=== PATIENT | female | born 1950 | race Caucasian/White ===

== ENCOUNTER 2018-06-08 17:31 | Inpatient (IN) | payer MEDICARE, MEDICAID ==
[~2018-06-08] VITALS: Ht 160 cm; Wt 72.6 kg
[~2018-06-08 17:31] MED LIST: BIMA5DRO OU; DIGO125T87 PO; FERR325C PO; FURO20 PO; QUET100T PO; QUET200XR PO; SIMV-260 PO; SYSTANE; [UNRECOGNIZED DRUG - OTHER] PO; [UNRECOGNIZED DRUG - OTHER] PO
[2018-06-08] MEDS ORDERED: LEVO25TA9 PO (18:19)
[2018-06-08] MEDS ORDERED: ALPR0.5T8 PO (18:19)
[2018-06-08] MEDS ORDERED: FLUO-191 PO (18:19)
[2018-06-08] MEDS ORDERED: RANI150T7 PO (18:19)
[2018-06-08] MEDS ORDERED: ATOR20TA86 PO (18:19)
[2018-06-08] MEDS ORDERED: RISP.5 PO (18:19)
[2018-06-08 18:41] LABS: BASOPHILS % (AUTO) 0.4 % (0.0-2.0); EOSINOPHILS % (AUTO) 0.4 % (1.0-6.0); HEMATOCRIT 38.3 % (36-46); HEMOGLOBIN 12.8 g/dL (12.0-16.0); LYMPHOCYTES % (AUTO) 10.7 % (22.0-44.0); MEAN CORPUSCULAR HEMOGLOBIN 29.1 pg (26.0-34.0); MEAN CORPUSCULAR HGB CONC 33.3 G/dL (31.0-37.0); MEAN CORPUSCULAR VOLUME 87 fL (80-100); MONOCYTES # (AUTO) 0.9 K/uL (0.1-1.0); MONOCYTES % (AUTO) 10.2 % (2.0-9.0); NEUTROPHILS # (AUTO) 7.2 K/uL (1.8-7.7); NEUTROPHILS % (AUTO) 78.3 % (40.0-70.0); PLATELET COUNT (AUTO) 307 K/uL (150-450); RED BLOOD CELL COUNT(AUTO) 4.38 MIL/uL (4.00-5.20); RED CELL DISTRIBUTION WIDTH 13.8 % (11.5-14.5)
[2018-06-08 18:50] LABS: ANION GAP 7 mmol/L (8-16); CALCIUM, TOTAL 8.6 mg/dL (8.8-10.5); CARBON DIOXIDE 30 mmol/L (22-29); CHLORIDE 106 mmol/L (98-107); CREATININE 0.65 mg/dL (0.60-1.30); GLOMERULAR FILTR. RATE CALC > 60 mL/min (>60); GLUCOSE,RANDOM 88 mg/dL (70-110); POTASSIUM 3.8 mmol/L (3.5-5.1); SODIUM SERUM 143 mmol/L (136-145); UREA NITROGEN, BLOOD 12 mg/dL (7-18)
[2018-06-08 18:56] LABS: ALANINE AMINOTRANSFERASE 25 U/L (12-78); ALBUMIN 3.2 g/dL (3.4-5.0); ALKALINE PHOSPHATASE 96 U/L (46-116); ASPARTATE AMINOTRANSFERASE 23 U/L (15-37); BILIRUBIN,TOTAL 0.5 mg/dL (0.1-1.0); TOTAL PROTEIN, SERUM 6.9 g/dL (6.4-8.2)
[2018-06-08] MEDS ORDERED: LORazepam 1 MG TABLET PO PRN (20:45)
[2018-06-08] MEDS ORDERED: ZOLPIDEM TARTRATE 10 MG TABLET PO PRN (20:45)
[2018-06-08] MEDS ORDERED: HALOPERIDOL 5 MG TABLET PO PRN (20:45)
[2018-06-08 21:01] LABS: HEMOGLOBIN A1C 5.7 % (4.5-6.2)
[2018-06-08 21:40] LABS: AMPHET/METH SCREEN,URINE NEGATIVE (NEGATIVE); BARBITURATE SCREEN, URINE NEGATIVE (NEGATIVE); BENZODIAZEPINES SCREEN,URINE POSITIVE (NEGATIVE); CANNABINOID SCREEN,URINE NEGATIVE (NEGATIVE); COCAINE SCREEN,URINE NEGATIVE (NEGATIVE); METHADONE SCREEN, URINE NEGATIVE (NEGATIVE); OPIATE SCREEN,URINE NEGATIVE (NEGATIVE)
[2018-06-08 21:41] LABS: PHENCYCLIDINE SCREEN,URINE NEGATIVE (NEGATIVE)
[2018-06-08 22:00] LABS: CHOL/HDL RATIO 3.2 (3.9-5.7); CHOLESTEROL 194 mg/dL (131-200); FREE T4 (FREE THYROXINE) 0.74 ng/dL (0.76-1.46); HDL CHOLESTEROL 61 mg/dL (40-60); LDL CHOL (CALC.) 115 mg/dL (0-130); THYROID STIMULATING HORMONE 2.73 uIU/mL (0.36-3.74); TRIGLYCERIDES 89 mg/dL (15-150)
[2018-06-09 02:03] VITALS: BP 135/71
[2018-06-09] MEDS ORDERED: PNEUMOCOCCAL VACCINE POLYVALENT 0.5 ML VIAL [PPSV23] IM ONE (03:45)
[2018-06-09 08:02] VITALS: BP 112/67
[2018-06-09] MEDS ORDERED: MAGNESIUM HYDROXIDE SUSPENSION 30 ML UDCUP PO PRN (13:00)
[2018-06-09] MEDS ORDERED: IBUPROFEN 600 MG TABLET PO PRN (13:00)
[2018-06-09] MEDS ORDERED: PETROLATUM,WHITE 71 GM JELLY TP PRN (13:00)
[2018-06-09] MEDS ORDERED: BENZOCAINE/MENTHOL LOZENGE MM PRN (13:00)
[2018-06-09] MEDS ORDERED: MAG HYDROX/AL HYDROX/SIMETH ES 30 ML SUSPENSION UDCUP PO PRN (13:00)
[2018-06-09] MEDS ORDERED: ACETAMINOPHEN 325 MG TABLET PO PRN (13:00)
[2018-06-09] MEDS ORDERED: ALBUTEROL SULFATE HFA 90 MCG/PUFF 8 GM INHALER IH PRN (13:00)
[2018-06-09] MEDS ORDERED: BACITRACIN 28.4 GM OINTMENT TP PRN (13:00)
[2018-06-09] MEDS ORDERED: LOPERAMIDE HCL 2 MG CAPSULE PO PRN (13:00)
[2018-06-09] MEDS ORDERED: CloNIDine HCL 0.1 MG TABLET PO PRN (13:00)
[2018-06-09] MEDS ORDERED: ONDANSETRON HCL 4 MG TABLET PO PRN (13:00)
[2018-06-09 17:04] VITALS: BP 127/73
[2018-06-09] MEDS: RisperiDONE 1 MG TABLET PO SCH (20:33)
[2018-06-09] MEDS: ATORVASTATIN CALCIUM 20 MG TABLET PO SCH (20:33)
[2018-06-10 01:00] VITALS: BP 102/63
[2018-06-10] MEDS: LEVOTHYROXINE SODIUM 25 MCG TABLET PO SCH (06:54)
[2018-06-10 09:00] VITALS: BP 120/73
[2018-06-10] MEDS: DOCUSATE SODIUM 100 MG CAPSULE PO SCH (09:09)
[2018-06-10] MEDS: RisperiDONE 1 MG TABLET PO SCH ×2 (09:09→20:59)
[2018-06-10] MEDS: OMEPRAZOLE 20 MG CAPSULE PO SCH (09:09)
[2018-06-10] MEDS: FLUoxetine HCL 20 MG CAPSULE PO SCH (09:09)
[2018-06-10] MEDS: BIMATOPROST 0.01% 2.5 ML OPHTHALMIC SOLUTION OU SCH (09:09)
[2018-06-10 19:11] VITALS: BP 128/77
[2018-06-10] MEDS: ATORVASTATIN CALCIUM 20 MG TABLET PO SCH (20:59)
[2018-06-11] MEDS: LEVOTHYROXINE SODIUM 25 MCG TABLET PO SCH (06:52)
[2018-06-11 08:00] VITALS: BP 114/70
[2018-06-11] MEDS: RisperiDONE 1 MG TABLET PO SCH ×2 (08:09→21:01)
[2018-06-11] MEDS: FLUoxetine HCL 20 MG CAPSULE PO SCH (08:09)
[2018-06-11] MEDS: OMEPRAZOLE 20 MG CAPSULE PO SCH (08:09)
[2018-06-11] MEDS: DOCUSATE SODIUM 100 MG CAPSULE PO SCH (08:10)
[2018-06-11] MEDS: BIMATOPROST 0.01% 2.5 ML OPHTHALMIC SOLUTION OU SCH (08:10)
[2018-06-11 16:00] VITALS: BP 138/73
[2018-06-11] MEDS: ATORVASTATIN CALCIUM 20 MG TABLET PO SCH (21:01)
[2018-06-12 05:44] VITALS: BP 142/87
[2018-06-12] MEDS: LEVOTHYROXINE SODIUM 25 MCG TABLET PO SCH (06:54)
[2018-06-12] MEDS: DOCUSATE SODIUM 100 MG CAPSULE PO SCH (08:36)
[2018-06-12] MEDS: FLUoxetine HCL 20 MG CAPSULE PO SCH (08:36)
[2018-06-12] MEDS: BIMATOPROST 0.01% 2.5 ML OPHTHALMIC SOLUTION OU SCH (08:36)
[2018-06-12] MEDS: OMEPRAZOLE 20 MG CAPSULE PO SCH (08:36)
[2018-06-12] MEDS: RisperiDONE 1 MG TABLET PO SCH (08:37)
[2018-06-12 16:59] VITALS: BP 133/90
[2018-06-12] MEDS: ATORVASTATIN CALCIUM 20 MG TABLET PO SCH (20:20)
[2018-06-12] MEDS: QUEtiapine FUMARATE 200 MG TABLET PO SCH (20:20)
[2018-06-13] MEDS: LEVOTHYROXINE SODIUM 25 MCG TABLET PO SCH (07:00)
[2018-06-13 09:00] VITALS: BP 109/60
[2018-06-13] MEDS: QUEtiapine FUMARATE 100 MG TABLET PO SCH (09:03)
[2018-06-13] MEDS: DOCUSATE SODIUM 100 MG CAPSULE PO SCH (09:03)
[2018-06-13] MEDS: OMEPRAZOLE 20 MG CAPSULE PO SCH (09:03)
[2018-06-13] MEDS: BIMATOPROST 0.01% 2.5 ML OPHTHALMIC SOLUTION OU SCH (09:04)
[2018-06-13] MEDS: FLUoxetine HCL 20 MG CAPSULE PO SCH (09:04)
[2018-06-13 17:05] VITALS: BP 106/70
[2018-06-13] MEDS: QUEtiapine FUMARATE 200 MG TABLET PO SCH (20:39)
[2018-06-13] MEDS: ATORVASTATIN CALCIUM 20 MG TABLET PO SCH (20:39)
[2018-06-14] MEDS: LEVOTHYROXINE SODIUM 25 MCG TABLET PO SCH (06:56)
[2018-06-14 08:05] VITALS: BP 113/66
[2018-06-14] MEDS: QUEtiapine FUMARATE 100 MG TABLET PO SCH (08:10)
[2018-06-14] MEDS: BIMATOPROST 0.01% 2.5 ML OPHTHALMIC SOLUTION OU SCH (08:11)
[2018-06-14] MEDS: DOCUSATE SODIUM 100 MG CAPSULE PO SCH (08:11)
[2018-06-14] MEDS: FLUoxetine HCL 20 MG CAPSULE PO SCH (08:11)
[2018-06-14] MEDS: OMEPRAZOLE 20 MG CAPSULE PO SCH (08:11)
[2018-06-14] MEDS ORDERED: QUET200T PO (11:26)
[2018-06-14] MEDS ORDERED: OMEP20 PO (11:27)
[2018-06-14] MEDS ORDERED: DSS100 PO (11:27)
== END 2018-06-14 12:30 | disposition home or self-care (01) | DRG 750 ==
LOC: EMS 17:32 → 3EI 06-09 00:04
PROC: 3E02340 Introduction of Influenza Vaccine into Muscle, Percutaneous Approach (ICD-10-PCS; principal; 2018-06-11)
PROC: 3E0234Z Introduction of Serum, Toxoid and Vaccine into Muscle, Percutaneous Approach (ICD-10-PCS; 2018-06-11)
DX: F25.1 Schizoaffective disorder, depressive type (principal); F79 Unspecified intellectual disabilities; E03.9 Hypothyroidism, unspecified; E78.5 Hyperlipidemia, unspecified; F41.9 Anxiety disorder, unspecified; K21.9 Gastro-esophageal reflux disease without esophagitis; H40.9 Unspecified glaucoma; R62.50 Unspecified lack of expected normal physiological development in childhood; G47.00 Insomnia, unspecified; Z79.899 Other long term (current) drug therapy; Z23 Encounter for immunization
CPT/HCPCS: 83036; 84439; 84443; 90686; 90732; G0480